=== PATIENT | female | born 1975 | race American Indian/Alaskan Native ===

== ENCOUNTER 2017-03-24 15:24 | Emergency (ER) | payer SELFPAY ==
[2017-03-24 15:36] VITALS: BP 124/83
[2017-03-24] MEDS ORDERED: BOOSTRIX IM ONE (16:10)
--- NOTE | 2017-03-24 16:12 | Emergency Department Report ---
ED General Adult HPI - General Chief complaint: Upper Respiratory Infection Stated complaint: CAN NOT SWALLOW, NAIL IN FOOT Time Seen by Provider: 03/24/17 15:56 Source: patient Mode of arrival: Ambulatory Limitations: No Limitations - History of Present Illness Initial comments: pt is a 41 y/o aaf who presents for right foot pain s/p stepping on nail barefoot 2 days ago symptoms include pain and aching, pt remain ambulatory however denies fever chills or discharge from foot, pt endorses secondary complaint of sore throat with dysphagia x 3 days , symptoms of 5/10 burning aching with swallowing pt denies sick contacts last po intake 3 hrs ago pt tolerated without n/v , symptoms are somewhat relieved by hot liquids symptoms are exacerbated by swallowing pt denies n/v no sob no wheezing, no fever or chills. Onset/Timin -: days(s) Location: lower extremity (right plantar foot ) Radiation: non-radiation Severity scale (0 -10): 5 Quality: burning, aching Consistency: intermittent Worsens with: none Associated Symptoms: denies: confusion, chest pain, cough, diaphoresis, fever/ chills, headaches, loss of appetite, malaise, nausea/vomiting, seizure, shortness of breath, syncope, weakness Treatments Prior to Arrival: none - Related Data Previous Rx's Medication Instructions Recorded Last Taken Type Clindamycin [Clindamycin CAP] 300 mg PO Q8H #30 cap 06/15/16 Unknown Rx Ibuprofen [Motrin] 800 mg PO Q8HR PRN #20 tablet 06/15/16 Unknown Rx Benzocaine/Menth/Cetylpyrd 8 each MM QID PRN #3 packet 03/24/17 Unknown Rx [Cepacol X Strength] Cephalexin [Keflex] 500 mg PO TID #21 capsule 03/24/17 Unknown Rx Ibuprofen [Motrin 800 MG tab] 800 mg PO Q8HR PRN #30 tablet 03/24/17 Unknown Rx Allergies Allergy/AdvReac Type Severity Reaction Status Date / Time No Known Allergies Allergy Unverified 06/15/16 14:05 ED Review of Systems ROS: Stated complaint: CAN NOT SWALLOW, NAIL IN FOOT Other details as noted in HPI Constitutional: denies: chills, fever Eyes: denies: eye pain, eye discharge, vision change ENT: throat pain, congestion Respiratory: no symptoms reported. denies: orthopnea, shortness of breath, wheezing Cardiovascular: denies: chest pain, palpitations Endocrine: no symptoms reported Gastrointestinal: denies: abdominal pain, nausea, diarrhea Genitourinary: denies: urgency, dysuria, discharge Musculoskeletal: other (foot pain ) Skin: denies: rash, lesions Neurological: denies: headache, weakness, paresthesias, abnormal gait Psychiatric: denies: anxiety, depression Hematological/Lymphatic: denies: easy bleeding, easy bruising ED Past Medical Hx - Past Medical History Previous Medical History?: Yes Additional medical history: right finger injury. abcess to throat. anemia - Surgical History Past Surgical History?: Yes Hx Cholecystectomy: Yes Additional Surgical History: tubaligation, gallbladder. heart surgery for fluid around heart. trach - Social History Smoking Status: Current Every Day Smoker Substance Use Type: Alcohol - Medications Home Medications: Home Medications Medication Instructions Recorded Confirmed Last Taken Type Clindamycin [Clindamycin CAP] 300 mg PO Q8H #30 cap 06/15/16 Unknown Rx Ibuprofen [Motrin] 800 mg PO Q8HR PRN #20 tablet 06/15/16 Unknown Rx Benzocaine/Menth/Cetylpyrd 8 each MM QID PRN #3 packet 03/24/17 Unknown Rx [Cepacol X Strength] Cephalexin [Keflex] 500 mg PO TID #21 capsule 03/24/17 Unknown Rx Ibuprofen [Motrin 800 MG tab] 800 mg PO Q8HR PRN #30 tablet 03/24/17 Unknown Rx ED Physical Exam - General Limitations: No Limitations General appearance: alert, in no apparent distress - Head Head exam: Present: atraumatic, normocephalic - Eye Eye exam: Present: normal appearance - ENT ENT exam: Present: mucous membranes moist, TM's normal bilaterally, normal external ear exam - Expanded ENT Exam Expanded Mouth exam: Present: normal external inspection, tongue normal. Absent: drooling, trismus, muffled voice, tongue elevation Teeth exam: Present: dental caries Throat exam: Positive: tonsillar erythema. Negative: tonsillomegaly, tonsillar exudate, R peritonsillar mass, L peritonsillar mass - Neck Neck exam: Present: normal inspection, full ROM. Absent: lymphadenopathy, thyromegaly - Respiratory Respiratory exam: Present: normal lung sounds bilaterally. Absent: respiratory distress - Cardiovascular Cardiovascular Exam: Present: regular rate, normal rhythm. Absent: systolic murmur, diastolic murmur, rubs, gallop - GI/Abdominal GI/Abdominal exam: Present: soft, normal bowel sounds - Rectal Rectal exam: Present: deferred - Extremities Exam Extremities exam: Present: normal inspection - Back Exam Back exam: Present: normal inspection, full ROM - Neurological Exam Neurological exam: Present: alert, oriented X3, CN II-XII intact, normal gait, reflexes normal - Psychiatric Psychiatric exam: Present: normal affect, normal mood - Skin Skin exam: Present: warm, dry, intact, normal color. Absent: rash ED Course Vital Signs 03/24/17 15:29 Temperature 98.5 F Pulse Rate 92 H Respiratory 18 Rate Blood Pressure 124/83 O2 Sat by Pulse 96 Oximetry ED Medical Decision Making - Lab Data rapid strep negative - Radiology Data Radiology results: report reviewed chest normal chest xray, foot normal foot xray - Medical Decision Making pt is a 41 y/o aaf who presents for right foot pain s/p stepping on nail barefoot 2 days ago symptoms include pain and aching, pt remain ambulatory however denies fever chills or discharge from foot, pt endorses secondary complaint of sore throat with dysphagia x 3 days , symptoms of 5/10 burning aching with swallowing pt denies sick contacts last po intake 3 hrs ago pt tolerated without n/v , symptoms are somewhat relieved by hot liquids symptoms are exacerbated by swallowing pt denies n/v no sob no wheezing, no fever or chills. exam: ENT tms amanda, nose: mild erythema clear post nasal drip, pharynx : moderate erythema no exudate no lesions , uvula mildline mild tonsilar swelling no exudate no abscess no stridor , lungs clear bilat no wheezing CV: s1 and s2 no MRG, rapid strep negative, right: foot , rom intact puncture site no erythema no ecchymosis no swelling no deformity , ppepb+2 pt is ambulatory with minimal limp, TDap given in ed today, plan: nsaids prn pain , tx of uri, pharyngitis, pt will follow up with primary care upon appointment next week. pt verbalized agreement and understanding of same. Critical care attestation.: If time is entered above; I have spent that time in minutes in the direct care of this critically ill patient, excluding procedure time. ED Disposition Clinical Impression: URI (upper respiratory infection) Qualifiers: URI type: acute nasopharyngitis (common cold) Qualified Code(s): J00 - Acute nasopharyngitis [common cold] Pharyngitis Qualifiers: Pharyngitis/tonsillitis etiology: unspecified etiology Qualified Code(s): J02.9 - Acute pharyngitis, unspecified Puncture wound of foot Qualifiers: Encounter type: initial encounter Laterality: right Qualified Code(s): S91.331A - Puncture wound without foreign body, right foot, initial encounter Disposition: TO HOME OR SELFCARE Is pt being admited?: No Does the pt Need Aspirin: No Condition: Good Instructions: Puncture Wound (ED), Upper Respiratory Infection (ED), Pharyngitis (ED) Prescriptions: Benzocaine/Menth/Cetylpyrd [Cepacol X Strength] 8 each MM QID PRN #3 packet PRN Reason: Pain Cephalexin [Keflex] 500 mg PO TID #21 capsule Ibuprofen [Motrin 800 MG tab] 800 mg PO Q8HR PRN #30 tablet PRN Reason: Pain Referrals: PRIMARY CARE, [Primary Care Provider] - 3-5 Days Forms: Work/School Release Form(ED) Time of Disposition: 18:09
--- NOTE | 2017-03-24 16:40 | XRay Report ---
CHEST ONE VIEW INDICATION: Productive cough. COMPARISON: 06/18/2016. FINDINGS: Portable, single, frontal chest radiograph now demonstrates normal cardiomediastinal silhouette and clear lungs. Unremarkable bones. CONCLUSION: No acute chest process with interval improvement. Thank you for the opportunity to participate in this patient's care.
--- NOTE | 2017-03-24 16:41 | XRay Report ---
LEFT FOOT RADIOGRAPHS INDICATION: Stepped on nail. Wound. COMPARISON: None similar. FINDINGS: AP, lateral and oblique views of the left foot demonstrate normal bones, joints and soft tissues. No radiopaque foreign body. CONCLUSION: No acute radiographic abnormality. Thank you for the opportunity to participate in this patient's care.
== END 2017-03-24 18:18 | disposition home or self-care (01) ==
LOC: ED 15:24
DX: J06.9 Acute upper respiratory infection, unspecified (principal); J02.9 Acute pharyngitis, unspecified; S91.331A Puncture wound without foreign body, right foot, initial encounter; F17.210 Nicotine dependence, cigarettes, uncomplicated; W22.8XXA Striking against or struck by other objects, initial encounter; Y93.89 Activity, other specified; Y92.89 Other specified places as the place of occurrence of the external cause; Y99.8 Other external cause status
CPT/HCPCS: 71010; 87116; 87430; 90471; 90715; 99283

== ENCOUNTER 2017-12-11 20:54 | Emergency (ER) | payer SELFPAY ==
[2017-12-11 21:42] LABS: HCG Qualitative,Urine Negative (Negative)
[2017-12-11 21:57] LABS: Bacteria,Urine 2+ /HPF (Negative); Bilirubin,Urine NEG (Negative); Blood,Urine SM (Negative); Color,Urine Straw (Yellow); Mucus,Urine FEW /HPF; Protein,Urine <15 mg/dL mg/dL (Negative); Urobilinogen,Urine < 2.0 mg/dL (<2.0)
[2017-12-12] MEDS ORDERED: TYLENOL PO ONE (07:13)
[2017-12-12] MEDS ORDERED: MOTRIN PO ONE (07:13)
[2017-12-12] MEDS ORDERED: NACL 0.9% 1000 ML 1,000 ML IV ONE (07:13)
[2017-12-12 07:45] LABS: Basophils % (Auto) 0.5 % (0.0-1.8); Eosinophils % (Auto) 0.1 % (0.0-4.3); Hematocrit 37.8 % (30.3-42.9); Hemoglobin 13.2 gm/dl (10.1-14.3); Lymphocytes # (Auto) 0.6 K/mm3 (1.2-5.4); Mean Corpuscular HGB Conc 35 % (30-34); Mean Corpuscular Hemoglobin 29 pg (28-32); Mean Corpuscular Volume 83 fl (79-97); Monocytes # (Auto) 0.4 K/mm3 (0.0-0.8); Platelet Count 147 K/mm3 (140-440); Red Blood Count 4.59 M/mm3 (3.65-5.03); Red Cell Distribution Width 12.7 % (13.2-15.2)
[2017-12-12 07:46] LABS: Alanine Aminotransferase 21 units/L (7-56); Albumin 3.7 g/dL (3.9-5); BUN/Creatinine Ratio 11; Blood Urea Nitrogen 9 mg/dL (7-17); Calcium 8.4 mg/dL (8.4-10.2); Hemolysis Index 6; Lipase 22 units/L (13-60)
--- NOTE | 2017-12-12 08:10 | Emergency Department Report ---
ED Abdominal Pain HPI - General Chief Complaint: Abdominal Pain Stated Complaint: FLU LIKE SX Time Seen by Provider: 12/12/17 07:02 Source: patient Mode of arrival: Ambulatory Limitations: No Limitations - History of Present Illness Initial Comments: 4 days of bilateral lower abdominal pain. Constant. Not affected by food. Associated with urinary symptoms. Patient has had a kidney stone is concerned that. Over the past 2 days, patient has had a fever to 101. Nauseous, but no vomiting. Has had a cholecystectomy and tubal ligation. No vaginal complaints at this time. Severity scale (0 -10): 0 - Related Data Previous Rx's Medication Instructions Recorded Last Taken Type Clindamycin [Clindamycin CAP] 300 mg PO Q8H #30 cap 06/15/16 Unknown Rx Ibuprofen [Motrin] 800 mg PO Q8HR PRN #20 tablet 06/15/16 Unknown Rx Benzocaine/Menth/Cetylpyrd 8 each MM QID PRN #3 packet 03/24/17 Unknown Rx [Cepacol X Strength] Cephalexin [Keflex] 500 mg PO TID #21 capsule 03/24/17 Unknown Rx Ibuprofen [Motrin 800 MG tab] 800 mg PO Q8HR PRN #30 tablet 03/24/17 Unknown Rx Cephalexin [Keflex] 500 mg PO Q8HR #30 cap 12/12/17 Unknown Rx traMADol [Ultram 50 MG tab] 50 mg PO Q6HR PRN #10 tablet 12/12/17 Unknown Rx Allergies Allergy/AdvReac Type Severity Reaction Status Date / Time No Known Allergies Allergy Verified 12/11/17 21:07 ED Review of Systems ROS: Stated complaint: FLU LIKE SX Other details as noted in HPI Comment: All other systems reviewed and negative Constitutional: chills, malaise Gastrointestinal: abdominal pain, nausea Genitourinary: dysuria Neurological: headache ED Past Medical Hx - Past Medical History Previous Medical History?: Yes Additional medical history: right finger injury. abcess to throat. anemia. fld around heart - Surgical History Past Surgical History?: Yes Hx Cholecystectomy: Yes Additional Surgical History: tubaligation, gallbladder. heart surgery for fluid around heart. trach - Social History Smoking Status: Current Every Day Smoker Substance Use Type: Alcohol - Medications Home Medications: Home Medications Medication Instructions Recorded Confirmed Last Taken Type Clindamycin [Clindamycin CAP] 300 mg PO Q8H #30 cap 06/15/16 Unknown Rx Ibuprofen [Motrin] 800 mg PO Q8HR PRN #20 tablet 06/15/16 Unknown Rx Benzocaine/Menth/Cetylpyrd 8 each MM QID PRN #3 packet 03/24/17 Unknown Rx [Cepacol X Strength] Cephalexin [Keflex] 500 mg PO TID #21 capsule 03/24/17 Unknown Rx Ibuprofen [Motrin 800 MG tab] 800 mg PO Q8HR PRN #30 tablet 03/24/17 Unknown Rx Cephalexin [Keflex] 500 mg PO Q8HR #30 cap 12/12/17 Unknown Rx traMADol [Ultram 50 MG tab] 50 mg PO Q6HR PRN #10 tablet 12/12/17 Unknown Rx ED Physical Exam - General Limitations: No Limitations General appearance: alert, in no apparent distress - Head Head exam: Present: atraumatic, normocephalic - Eye Eye exam: Present: normal appearance - ENT ENT exam: Present: mucous membranes moist - Neck Neck exam: Present: normal inspection - Respiratory Respiratory exam: Present: normal lung sounds bilaterally. Absent: respiratory distress - Cardiovascular Cardiovascular Exam: Present: regular rate, normal rhythm. Absent: systolic murmur, diastolic murmur, rubs, gallop - GI/Abdominal GI/Abdominal exam: Present: soft, tenderness (RLQ, LLQ, suprapubic, no cva tenderness), normal bowel sounds - Extremities Exam Extremities exam: Present: normal inspection - Back Exam Back exam: Present: normal inspection - Neurological Exam Neurological exam: Present: alert, oriented X3 - Psychiatric Psychiatric exam: Present: normal affect, normal mood - Skin Skin exam: Present: warm, dry, intact, normal color. Absent: rash ED Course Vital Signs 12/11/17 12/12/17 12/12/17 21:03 06:56 07:14 Temperature 99.5 F 101.0 F H Pulse Rate 79 71 Respiratory 18 17 Rate Blood Pressure 122/78 Blood Pressure 122/74 [Left] O2 Sat by Pulse 99 99 Oximetry ED Medical Decision Making - Lab Data Result diagrams: 12/12/17 07:17 12/12/17 07:15 - Radiology Data Radiology results: report reviewed - Medical Decision Making 42-year-old female with no significant past medical history of presents with abdominal pain and fevers. Patient had a temperature of 101. Respiratory vitals are unremarkable. She is well-appearing. Lab work significant for hematuria on urinalysis. CT scan shows evidence of uterine fibroids, but no other acute abdominal pathology. I believe patient likely to be suffering pain from her fibroids and a UTI, which is also giving her fever. Patient will be treated for 10 days to cover for possible pyelonephritis. She is not concerned about STDs and has no vaginal complaints. I deferred the exam at this time. Patient will follow-up with [facility] for management of her fibroids. - Differential Diagnosis sepsis, UTI, PID, pyelo, torsion, toa Critical care attestation.: If time is entered above; I have spent that time in minutes in the direct care of this critically ill patient, excluding procedure time. ED Disposition Clinical Impression: UTI (urinary tract infection), Uterine fibroid Clinical Impression: (Ruled Out): Pyelonephritis Disposition: TO HOME OR SELFCARE Is pt being admited?: No Condition: Stable Instructions: Abdominal Pain (ED), Uterine Fibroids (ED), Urinary Tract Infection in Women (ED) Additional Instructions: Please follow up with your [facility] for further management of your fibroids. Take 1000 mg tylenol and/or 800 mg motrin every 6 hours as needed to control your fever. Prescriptions: Cephalexin [Keflex] 500 mg PO Q8HR #30 cap traMADol [Ultram 50 MG tab] 50 mg PO Q6HR PRN #10 tablet PRN Reason: Pain Referrals: PRIMARY CARE, [Primary Care Provider] - 3-5 Days VICKY LESTER MD [Staff Physician] - 3-5 Days
--- NOTE | 2017-12-12 08:34 | Cat Scan Report ---
CT ABDOMEN PELVIS WITH CONTRAST: HISTORY: abdominal pain. COMPARISON: 06/18/[address] abdomen and pelvis. TECHNIQUE: Helical CT in 1.25mm intervals following IV contrast. Sagittal and coronal reconstructions. FINDINGS: Lung bases: Small bilateral pleural effusions and bibasilar atelectasis/infiltrates have resolved since the previous exam. Normal heart size. Liver: Normal. Biliary system: Cholecystectomy. No biliary dilatation. Pancreas: Normal. Spleen: Normal. Kidneys/ureters/bladder: Normal. Adrenal glands: Normal. Aorta: Normal. Intestines: Within normal limits given no oral contrast was administered. Appendix: I believe I see the appendix in the right lower quadrant on image 239, series 3. No evidence for appendicitis. Pelvic viscera: The uterus is mildly enlarged and lobular. At least 3 uterine fibroids are identified. The largest fibroid measures up to 6 cm in the right side of the uterine fundus and appears to have a submucosal component. A subserosal fibroid in the lower anterior wall measures 4.1 cm and demonstrates cystic change. An exophytic 3 cm fibroid projects from the left lateral wall. The right adnexa is unremarkable. A 2.2 cm peripheral enhancing cyst is noted in the left ovary. Ascites: Small pelvic ascites. Adenopathy: None. Musculoskeletal: Normal. IMPRESSION: Moderate uterine fibroid disease. 2.2 cm left ovarian cyst there is Small pelvic ascites. No acute inflammatory process is appreciated.
[2017-12-12] MEDS ORDERED: KEFLEX PO ONE (09:08)
[2017-12-12 09:13] VITALS: BP 122/69
== END 2017-12-12 11:00 | disposition home or self-care (01) ==
LOC: ED 20:54
DX: N39.0 Urinary tract infection, site not specified (principal); D25.9 Leiomyoma of uterus, unspecified; F17.200 Nicotine dependence, unspecified, uncomplicated; Z90.49 Acquired absence of other specified parts of digestive tract; Z98.51 Tubal ligation status
CPT/HCPCS: 36415; 74177; 80053; 81001; 81025; 83690; 85025; 99284; J7030; Q9967

== ENCOUNTER 2019-03-13 14:51 | Emergency (ER) | payer SELFPAY ==
[2019-03-13] MEDS ORDERED: ATIVAN PO PRN ×2 (16:42)
[2019-03-13] MEDS ORDERED: ATIVAN IV PRN (16:42)
[2019-03-13] MEDS ORDERED: LIBRIUM PO PRN ×2 (16:42)
[2019-03-13 17:01] LABS: Bilirubin,Urine NEG (Negative); Blood,Urine NEG (Negative); Color,Urine Yellow (Yellow); Mucus,Urine 1+ /HPF; Urobilinogen,Urine < 2.0 mg/dL (<2.0)
[2019-03-13] MEDS ORDERED: ZOFRAN IV ONE (17:23)
[2019-03-13] MEDS ORDERED: NACL 0.9% 1000 ML 1,000 ML IV ONE (17:23)
--- NOTE | 2019-03-13 17:36 | Emergency Department Report ---
ED General Adult HPI - General Chief complaint: Psych Stated complaint: SUICIDAL THOUGHRS Time Seen by Provider: 03/13/19 16:35 Source: EMS Mode of arrival: Ambulatory Limitations: No Limitations - History of Present Illness Initial comments: Presented to the emergency department with a chief complaint of depression and being suicidal. She is also concerned about her alcohol intake and wants help. Patient states she drinks 6 20 ounce cans of beer daily but today she has only drunk 1 can of beer -: Gradual Severity scale (0 -10): 0 Consistency: constant Improves with: none Worsens with: none Associated Symptoms: denies other symptoms Treatments Prior to Arrival: none - Related Data Home Medications Medication Instructions Recorded Confirmed Last Taken No Known Home Medications [No 03/13/19 03/13/19 Unknown Reported Home Medications] Allergies Allergy/AdvReac Type Severity Reaction Status Date / Time No Known Allergies Allergy Verified 12/11/17 21:07 ED Review of Systems ROS: Stated complaint: SUICIDAL THOUGHRS Other details as noted in HPI Comment: All other systems reviewed and negative Constitutional: denies: chills, fever Eyes: denies: eye pain, eye discharge, vision change ENT: denies: ear pain, throat pain Respiratory: denies: cough, shortness of breath, wheezing Cardiovascular: denies: chest pain, palpitations Endocrine: no symptoms reported Gastrointestinal: denies: abdominal pain, nausea, diarrhea Genitourinary: denies: urgency, dysuria, discharge Musculoskeletal: denies: back pain, joint swelling, arthralgia Skin: denies: rash, lesions Neurological: denies: headache, weakness, paresthesias Psychiatric: suicidal thoughts. denies: anxiety, depression, auditory hallucinations, visual hallucinations, homicidal thoughts Hematological/Lymphatic: denies: easy bleeding, easy bruising ED Past Medical Hx - Past Medical History Previous Medical History?: Yes Hx Psychiatric Treatment: Yes (Depression) Additional medical history: right finger injury. abcess to throat. anemia. fld around heart - Surgical History Hx Cholecystectomy: Yes Additional Surgical History: tubaligation, gallbladder. heart surgery for fluid around heart. trach - Social History Smoking Status: Current Every Day Smoker Substance Use Type: Alcohol - Medications Home Medications: Home Medications Medication Instructions Recorded Confirmed Last Taken Type No Known Home Medications [No 03/13/19 03/13/19 Unknown History Reported Home Medications] ED Physical Exam - General Limitations: No Limitations General appearance: alert, in no apparent distress, appears intoxicated - Head Head exam: Present: atraumatic, normocephalic - Eye Eye exam: Present: normal appearance, PERRL, EOMI - ENT ENT exam: Present: mucous membranes moist - Neck Neck exam: Present: normal inspection - Respiratory Respiratory exam: Present: normal lung sounds bilaterally. Absent: respiratory distress - Cardiovascular Cardiovascular Exam: Present: regular rate, normal rhythm. Absent: systolic murmur, diastolic murmur, rubs, gallop - GI/Abdominal GI/Abdominal exam: Present: soft, normal bowel sounds. Absent: distended, tenderness - Extremities Exam Extremities exam: Present: normal inspection - Back Exam Back exam: Present: normal inspection - Neurological Exam Neurological exam: Present: alert, oriented X3, CN II-XII intact, other (Tremors on exam). Absent: motor sensory deficit - Psychiatric Psychiatric exam: Present: normal affect, normal mood, suicidal ideation. Absent: homicidal ideation - Skin Skin exam: Present: warm, dry, intact, normal color. Absent: rash ED Course Vital Signs 03/13/19 03/13/19 15:09 16:30 Temperature 98.9 F 98.9 F Pulse Rate 95 H 95 H Respiratory 18 18 Rate Blood Pressure 137/83 Blood Pressure 137/83 137/83 [Left] O2 Sat by Pulse 98 98 Oximetry ED Medical Decision Making - Lab Data Result diagrams: 03/13/19 17:50 03/13/19 17:50 Lab Results 03/13/19 03/13/19 03/13/19 Range/Units 17:50 17:50 17:50 WBC 6.5 (4.5-11.0) K/mm3 RBC 4.47 (3.65-5.03) M/mm3 Hgb 13.3 (10.1-14.3) gm/dl Hct 38.5 (30.3-42.9) % MCV 86 (79-97) fl MCH 30 (28-32) pg MCHC 35 H (30-34) % RDW 13.1 L (13.2-15.2) % Plt Count 242 (140-440) K/mm3 Lymph % (Auto) 13.1 L (13.4-35.0) % [place] % (Auto) 7.8 H (0.0-7.3) % Eos % (Auto) 0.2 (0.0-4.3) % Baso % (Auto) 0.6 (0.0-1.8) % Lymph # 0.9 L (1.2-5.4) K/mm3 [place] # 0.5 (0.0-0.8) K/mm3 Eos # 0.0 (0.0-0.4) K/mm3 Baso # 0.0 (0.0-0.1) K/mm3 Seg Neutrophils % 78.3 H (40.0-70.0) % Seg Neutrophils # 5.1 (1.8-7.7) K/mm3 Sodium 139 (137-145) mmol/L Potassium 3.9 (3.6-5.0) mmol/L Chloride 97.7 L (98-107) mmol/L Carbon Dioxide 31 H (22-30) mmol/L Anion Gap 14 mmol/L BUN 10 (7-17) mg/dL Creatinine 0.7 (0.7-1.2) mg/dL Estimated GFR > 60 ml/min BUN/Creatinine Ratio 14 % Glucose 86 (65-100) mg/dL Calcium 9.0 (8.4-10.2) mg/dL Total Bilirubin 1.10 (0.1-1.2) mg/dL AST 34 (5-40) units/L ALT 17 (7-56) units/L Alkaline Phosphatase 77 (35-129) units/L Total Protein 7.4 (6.3-8.2) g/dL Albumin 4.4 (3.9-5) g/dL Albumin/Globulin Ratio 1.5 % TSH (0.270-4.200) mlU/mL Urine Color (Yellow) Urine Turbidity (Clear) Urine pH (5.0-7.0) Ur Specific [place] (1.003-1.030) Urine Protein (Negative) mg/dL Urine Glucose (UA) (Negative) mg/dL Urine Ketones (Negative) mg/dL Urine Blood (Negative) Urine Nitrite (Negative) Urine Bilirubin (Negative) Urine Urobilinogen (<2.0) mg/dL Ur Leukocyte Esterase (Negative) Urine WBC (Auto) (0.0-6.0) /HPF Urine RBC (Auto) (0.0-6.0) /HPF U Epithel Cells (Auto) (0-13.0) /HPF Urine Mucus /HPF Salicylates < 0.3 L (2.8-20.0) mg/dL Urine Opiates Screen Urine Methadone Screen Acetaminophen (10.0-30.0) ug/mL Ur Barbiturates Screen Ur Phencyclidine Scrn Ur Amphetamines Screen U Benzodiazepines Scrn Urine Cocaine Screen U Marijuana (THC) Screen Drugs of Abuse Note Plasma/Serum Alcohol (0-0.07) % 03/13/19 03/13/19 03/13/19 Range/Units 17:50 17:55 17:56 WBC (4.5-11.0) K/mm3 RBC (3.65-5.03) M/mm3 Hgb (10.1-14.3) gm/dl Hct (30.3-42.9) % MCV (79-97) fl MCH (28-32) pg MCHC (30-34) % RDW (13.2-15.2) % Plt Count (140-440) K/mm3 Lymph % (Auto) (13.4-35.0) % [place] % (Auto) (0.0-7.3) % Eos % (Auto) (0.0-4.3) % Baso % (Auto) (0.0-1.8) % Lymph # (1.2-5.4) K/mm3 [place] # (0.0-0.8) K/mm3 Eos # (0.0-0.4) K/mm3 Baso # (0.0-0.1) K/mm3 Seg Neutrophils % (40.0-70.0) % Seg Neutrophils # (1.8-7.7) K/mm3 Sodium (137-145) mmol/L Potassium (3.6-5.0) mmol/L Chloride (98-107) mmol/L Carbon Dioxide (22-30) mmol/L Anion Gap mmol/L BUN (7-17) mg/dL Creatinine (0.7-1.2) mg/dL Estimated GFR ml/min BUN/Creatinine Ratio % Glucose (65-100) mg/dL Calcium (8.4-10.2) mg/dL Total Bilirubin (0.1-1.2) mg/dL AST (5-40) units/L ALT (7-56) units/L Alkaline Phosphatase (35-129) units/L Total Protein (6.3-8.2) g/dL Albumin (3.9-5) g/dL Albumin/Globulin Ratio % TSH 2.480 (0.270-4.200) mlU/mL Urine Color (Yellow) Urine Turbidity (Clear) Urine pH (5.0-7.0) Ur Specific [place] (1.003-1.030) Urine Protein (Negative) mg/dL Urine Glucose (UA) (Negative) mg/dL Urine Ketones (Negative) mg/dL Urine Blood (Negative) Urine Nitrite (Negative) Urine Bilirubin (Negative) Urine Urobilinogen (<2.0) mg/dL Ur Leukocyte Esterase (Negative) Urine WBC (Auto) (0.0-6.0) /HPF Urine RBC (Auto) (0.0-6.0) /HPF U Epithel Cells (Auto) (0-13.0) /HPF Urine Mucus /HPF Salicylates (2.8-20.0) mg/dL Urine Opiates Screen Urine Methadone Screen Acetaminophen < 5.0 L (10.0-30.0) ug/mL Ur Barbiturates Screen Ur Phencyclidine Scrn Ur Amphetamines Screen U Benzodiazepines Scrn Urine Cocaine Screen U Marijuana (THC) Screen Drugs of Abuse Note Plasma/Serum Alcohol < 0.01 (0-0.07) % 03/13/19 03/13/19 Range/Units 18:40 Unknown WBC (4.5-11.0) K/mm3 RBC (3.65-5.03) M/mm3 Hgb (10.1-14.3) gm/dl Hct (30.3-42.9) % MCV (79-97) fl MCH (28-32) pg MCHC (30-34) % RDW (13.2-15.2) % Plt Count (140-440) K/mm3 Lymph % (Auto) (13.4-35.0) % [place] % (Auto) (0.0-7.3) % Eos % (Auto) (0.0-4.3) % Baso % (Auto) (0.0-1.8) % Lymph # (1.2-5.4) K/mm3 [place] # (0.0-0.8) K/mm3 Eos # (0.0-0.4) K/mm3 Baso # (0.0-0.1) K/mm3 Seg Neutrophils % (40.0-70.0) % Seg Neutrophils # (1.8-7.7) K/mm3 Sodium (137-145) mmol/L Potassium (3.6-5.0) mmol/L Chloride (98-107) mmol/L Carbon Dioxide (22-30) mmol/L Anion Gap mmol/L BUN (7-17) mg/dL Creatinine (0.7-1.2) mg/dL Estimated GFR ml/min BUN/Creatinine Ratio % Glucose (65-100) mg/dL Calcium (8.4-10.2) mg/dL Total Bilirubin (0.1-1.2) mg/dL AST (5-40) units/L ALT (7-56) units/L Alkaline Phosphatase (35-129) units/L Total Protein (6.3-8.2) g/dL Albumin (3.9-5) g/dL Albumin/Globulin Ratio % TSH (0.270-4.200) mlU/mL Urine Color Yellow (Yellow) Urine Turbidity Clear (Clear) Urine pH 6.0 (5.0-7.0) Ur Specific [place] 1.020 (1.003-1.030) Urine Protein 30 mg/dl (Negative) mg/dL Urine Glucose (UA) Neg (Negative) mg/dL Urine Ketones 20 (Negative) mg/dL Urine Blood Neg (Negative) Urine Nitrite Neg (Negative) Urine Bilirubin Neg (Negative) Urine Urobilinogen < 2.0 (<2.0) mg/dL Ur Leukocyte Esterase Neg (Negative) Urine WBC (Auto) 2.0 (0.0-6.0) /HPF Urine RBC (Auto) 1.0 (0.0-6.0) /HPF U Epithel Cells (Auto) 2.0 (0-13.0) /HPF Urine Mucus 1+ /HPF Salicylates (2.8-20.0) mg/dL Urine Opiates Screen Presumptive negative Urine Methadone Screen Presumptive negative Acetaminophen (10.0-30.0) ug/mL Ur Barbiturates Screen Presumptive negative Ur Phencyclidine Scrn Presumptive negative Ur Amphetamines Screen Presumptive negative U Benzodiazepines Scrn Presumptive negative Urine Cocaine Screen Presumptive negative U Marijuana (THC) Screen Presumptive negative Drugs of Abuse Note Disclamer Plasma/Serum Alcohol (0-0.07) % - Medical Decision Making 2012 applied Placed on [facility] Medically cleared Critical care attestation.: If time is entered above; I have spent that time in minutes in the direct care of this critically ill patient, excluding procedure time. ED Disposition Clinical Impression: Suicidal ideation, Alcohol abuse Disposition: [id number]/TX-65 PSY HOSP/PSY UNIT Is pt being admited?: No Does the pt Need Aspirin: No Condition: Stable Referrals: PRIMARY CARE, [Primary Care Provider] - 3-5 Days
[2019-03-13 18:10] LABS: Basophils % (Auto) 0.6 % (0.0-1.8); Eosinophils % (Auto) 0.2 % (0.0-4.3); Hematocrit 38.5 % (30.3-42.9); Hemoglobin 13.3 gm/dl (10.1-14.3); Lymphocytes # (Auto) 0.9 K/mm3 (1.2-5.4); Lymphocytes % (Auto) 13.1 % (13.4-35.0); Mean Corpuscular HGB Conc 35 % (30-34); Mean Corpuscular Volume 86 fl (79-97); Monocytes # (Auto) 0.5 K/mm3 (0.0-0.8); Monocytes % (Auto) 7.8 % (0.0-7.3); Platelet Count 242 K/mm3 (140-440); Red Blood Count 4.47 M/mm3 (3.65-5.03); Red Cell Distribution Width 13.1 % (13.2-15.2)
[2019-03-13 18:54] LABS: Alanine Aminotransferase 17 units/L (7-56); Albumin 4.4 g/dL (3.9-5); BUN/Creatinine Ratio 14; Blood Urea Nitrogen 10 mg/dL (7-17); Hemolysis Index 16
[2019-03-13 22:40] LABS: Amphetamine Screen,Urine PRESUMPTIVE NEGATIVE; Benzodiazepines Screen,Urine PRESUMPTIVE NEGATIVE; Cannabinoid Screen,Urine PRESUMPTIVE NEGATIVE; Cocaine Screen,Urine PRESUMPTIVE NEGATIVE; Methadone Screen,Urine PRESUMPTIVE NEGATIVE; Opiate Screen,Urine PRESUMPTIVE NEGATIVE
--- NOTE | 2019-03-14 10:52 | Consultation ---
History of Present Illness - Reason for Consult Consult date: 03/14/19 Reason for consult: Initial Psychiatric Evaluation - Chief Complaint Chief complaint: "suicidal thoughts" - History of Present Psychiatric Illness Patient is a 43 year old AAF that presents to the emergency room with depression and suicidal ideations. She has a PPHx MDD. Today the patient is calm and cooperative during the assessment. Throughout the assessment patient is tearful. She reports that her depressive symptoms are triggered by her instability and lack of accomplishments. Also, patient verbalizes that she has been drinking excessively due to depressed mood. Patient states she drinks 6 20 ounce cans of beer daily. She endorses depressed mood, lack of motivation, decrease energy, decrease appetite, anxious mood, and decrease sleep. Symptoms have been ongoing for 6 years but within the last 1-2 years symptoms have exacerbated. She reports SI's without a plan. She denies HI', A/VH's, and delusions. Patient reports that she hasn't taken depression medication since 2008. Current Psychiatric Medications: Patient denies. Past Psychiatric History: MDD (2007); 1 previous psychiatric hospitalization ( [facility] 2007); no outpatient psychiatrist; 2 previous suicide attempts ( drinking bleach)- last attempt 09/2018. Past Medication Trials: Prozac- effective, Zoloft- " I don't remember", Wellbutrin- " good but it made me sleep all day." History of Drugs/Alcohol Abuse: Alcohol- 6 20 ounce cans of beer daily, last drink - 03/13/19, first drink- age 19. Denies drug abuse. UDS negative. History of Trauma/Abuse: Patient denies trauma; Patient denies sexual, physical, and mental abuse. Social History: Some college; homeless; 3 children - (23, 22,20); in a relationship; no pending legal issues. Family History of Psychiatric Illness/Substance Abuse: " Everybody drinks." Medications and Allergies Allergies Allergy/AdvReac Type Severity Reaction Status Date / Time No Known Allergies Allergy Verified 12/11/17 21:07 Home Medications Medication Instructions Recorded Confirmed Last Taken Type No Known Home Medications [No 03/13/19 03/13/19 Unknown History Reported Home Medications] Active Meds: Active Medications Chlordiazepoxide HCl (Librium) 50 mg PO Q1HR PRN PRN Reason: CIWA-Ar 8-15 Chlordiazepoxide HCl (Librium) 100 mg PO Q1HR PRN PRN Reason: CIWA-Ar 16-25 Lorazepam (Ativan) 2 mg PO Q1HR PRN PRN Reason: CIWA-Ar 8-15 Last Admin: 03/13/19 17:06 Dose: 2 mg Documented by: Lorazepam (Ativan) 4 mg PO Q1HR PRN PRN Reason: CIWA-Ar 16-25 Lorazepam (Ativan) 4 mg IV Q15MIN PRN PRN Reason: CIWA-Ar >25 Mental Status Exam - Vital signs Last Vital Signs Temp 98.1 F 03/14/19 08:45 Pulse 69 03/14/19 08:45 Resp 16 03/14/19 08:45 BP 126/77 03/14/19 08:45 Pulse Ox 97 03/14/19 08:45 - Exam Narrative exam: Mental Status Exam Appearance: calm Behavior: regular eye contact Speech: regular rate and tone Mood: "sad" Affect: congruent to mood Thought Process: circumstantial Thought Content: denies HI's, AVH's, and delusions; + SI's without a plan Motor Activity: ambulatory Cognition: A/O x 3 Insight: variable Judgment: variable Results Result Diagrams: 03/13/19 17:50 03/13/19 17:50 Abnormal lab results 03/13/19 03/13/19 03/13/19 Range/Units 17:50 17:50 17:50 MCHC 35 H (30-34) % RDW 13.1 L (13.2-15.2) % Lymph % (Auto) 13.1 L (13.4-35.0) % [place] % (Auto) 7.8 H (0.0-7.3) % Lymph # 0.9 L (1.2-5.4) K/mm3 Seg Neutrophils % 78.3 H (40.0-70.0) % Chloride 97.7 L (98-107) mmol/L Carbon Dioxide 31 H (22-30) mmol/L Salicylates < 0.3 L (2.8-20.0) mg/dL Acetaminophen (10.0-30.0) ug/mL 03/13/19 Range/Units 17:56 MCHC (30-34) % RDW (13.2-15.2) % Lymph % (Auto) (13.4-35.0) % [place] % (Auto) (0.0-7.3) % Lymph # (1.2-5.4) K/mm3 Seg Neutrophils % (40.0-70.0) % Chloride (98-107) mmol/L Carbon Dioxide (22-30) mmol/L Salicylates (2.8-20.0) mg/dL Acetaminophen < 5.0 L (10.0-30.0) ug/mL All other labs normal. Assessment and Plan Assessment and plan: Impression: MDD, recurrent, severe, without psychosis. Today the patient is calm and cooperative during the assessment. Also, patient is tearful. She endorse SI's without a plan. Recommendation/Plan: 1. Continue 1013. 2. Start Prozac 20mg po QAM depression/anxiety. Discussed possible suicidality/medication induced virgie with the patient reference Prozac, she verbalized understanding. Also, Vistaril 50mg po BID PRN anxiety. Discussed possible anti-cholinergic side effects. Patient verbalizes full understanding. Disposition: Will refer to inpatient psychiatric services. Will staff with Dr. Ross Barr.
[2019-03-14] MEDS: PROzac PO SCH (14:28)
[2019-03-14] MEDS: VISTARIL PO PRN ×2 (14:29→22:05)
[2019-03-15 09:42] LABS: Bilirubin,Urine NEG (Negative); Blood,Urine SM (Negative); Color,Urine Yellow (Yellow); Mucus,Urine FEW /HPF; Protein,Urine <15 mg/dL mg/dL (Negative); Urobilinogen,Urine < 2.0 mg/dL (<2.0)
[2019-03-15 09:43] LABS: HCG Qualitative,Urine Negative (Negative)
[2019-03-15] MEDS: PROzac PO SCH (10:33)
--- NOTE | 2019-03-15 12:25 | Progress Note ---
Subjective - Reason for Consult Consult date: 03/15/19 Reason for consult: Psychiatry Follow-up - Chief Complaint Chief complaint: "I'm a little better" 43 year old AAF who presented to the ER for SI's. Today the patient was calm and cooperative during the assessment. She stated that she feel A "little better." mentally. She stated that she is in need of employment. Also, she stated that she is homeless. She denies SI/HI's and AVH's. She denies any side effects from her medications. Mental Status Exam - Vital signs Last Vital Signs Temp 98.4 F 03/15/19 09:15 Pulse 68 03/15/19 09:15 Resp 18 03/15/19 09:15 BP 122/69 03/15/19 09:15 Pulse Ox 98 03/15/19 09:15 - Exam Narrative exam: MSE: Appearance: calm, cooperative Behavior: regular eye contact Speech: regular rate and tone Mood: "okay" Affect: congruent to mood Thought Process: circumstantial Thought Content: denies SI/HI's and AVH's Motor Activity: ambulatory Cognition: A/O x 3 Insight: variable to fair Judgment: variable to fair Assessment and Plan Impression: MDD, recurrent. Unspecified Anxiety DO. Today the patient was calm and cooperative during the assessment. DDx: R/O Bipolar DO Recommendation/Plan: Reevaluate the patient's 1013 in 24 hours. Continue Prozac 20 mg PO daily for depression/anxiety and Vistaril 50 mg PO BID PRN for acute anxiety. Discussed possible suicidality/medication induced virgie with the patient reference Prozac, she verbalized understanding. Case Mgmt involvement, the patient may need assistance with placement if discharged from [facility]. Dispo: If the patient's 1013 is rescinded in 24 hours, she can follow up with [facility] for outpatient psy services. Will staff with Dr. Ross Barr.
[2019-03-15] MEDS: VISTARIL PO PRN (22:20)
[2019-03-16] MEDS: PROzac PO SCH (10:37)
--- NOTE | 2019-03-16 13:53 | Progress Note ---
Subjective - Reason for Consult Consult date: 03/16/19 Reason for consult: Psychiatry Follow-up - Chief Complaint Chief complaint: "Things will get better for me" 43 year old AAF who presented to the ER for SI's. Today the patient was calm and cooperative during the assessment. She stated that her plan to stop drinking (etoh). She stated that she plan to attend AA sessions when discharged. She stated that her mental health is very important to her. She denies SI/HI's and AVH's. She denies any side effects from her medications. Mental Status Exam - Vital signs Last Vital Signs Temp 98.2 F 03/16/19 07:00 Pulse 54 L 03/16/19 07:00 Resp 18 03/16/19 07:00 BP 121/54 03/16/19 07:00 Pulse Ox 97 03/16/19 07:00 - Exam Narrative exam: MSE: Appearance: calm, cooperative Behavior: regular eye contact Speech: regular rate and tone Mood: "okay" Affect: congruent to mood Thought Process: linear Thought Content: denies SI/HI's and AVH's Motor Activity: ambulatory Cognition: A/O x 3 Insight: appropriate Judgment: appropriate Assessment and Plan Impression: MDD, recurrent. Unspecified Anxiety DO. Today the patient was calm and cooperative during the assessment. DDx: ,Alcohol Use DO R/O Bipolar DO Recommendation/Plan: Rescind 1013. Continue Prozac 20 mg PO daily for depression/anxiety and Vistaril 50 mg PO BID PRN for acute anxiety. Discussed possible suicidality/medication induced virgie with the patient reference Prozac, she verbalized understanding. Dispo: The patient can follow up [facility] for outpatient psy/rehab services. Staffed with Dr. Ross Barr.
[2019-03-16 14:10] VITALS: BP 114/65
== END 2019-03-16 17:55 | disposition home or self-care (01) ==
LOC: EEVIPCON 14:51 → ED 14:51
DX: F32.9 Major depressive disorder, single episode, unspecified (principal); F41.9 Anxiety disorder, unspecified; R45.851 Suicidal ideations; D64.9 Anemia, unspecified; F17.200 Nicotine dependence, unspecified, uncomplicated; F10.10 Alcohol abuse, uncomplicated; Z90.49 Acquired absence of other specified parts of digestive tract; Z98.51 Tubal ligation status
CPT/HCPCS: 36415; 80053; 80307; 81001; 81025; 84443; 85025; 96374; 99284; J2405; J7030; 80320; G0480; Q0177

== ENCOUNTER 2020-06-22 15:21 | Emergency (ER) | payer SELFPAY ==
[2020-06-22 16:06] VITALS: BP 130/74
[2020-06-22] MEDS ORDERED: chlordiazePOXIDE 25 MG CAP PO PRN ×2 (16:25)
[2020-06-22] MEDS ORDERED: hydrOXYzine PAMOATE 25 MG CAP PO ONE (16:25)
[2020-06-22] MEDS ORDERED: LORazepam 2 MG TAB PO PRN ×2 (16:25)
[2020-06-22] MEDS ORDERED: LORazepam 2 MG/ML VIAL IV PRN (16:25)
--- NOTE | 2020-06-22 16:38 | Emergency Department Report ---
ED General Adult HPI - General Chief complaint: Psych Stated complaint: SI PUI?: No Time Seen by Provider: 06/22/20 16:04 Source: patient, EMS ( EMS documentation not available at time of chart dictation ), RN notes reviewed, old records reviewed Mode of arrival: Ambulatory Limitations: No Limitations - History of Present Illness Initial comments: The patient was evaluated in the emergency department for symptoms described in the history of present illness. He/she was evaluated in the context of the global COVID-19 pandemic, which necessitated consideration that the patient might be at risk for infection with the virus that causes COVID-19. Institutional protocols and algorithms that pertain to the evaluation of patien ts at risk for COVID-19 are in a state of rapid change based on information released by regulatory bodies including the CDC and federal and state organizations. These policies and algorithms were followed during the patient's care in the emergency department. Please note that these policies, procedures and recommendations changed on a rapid basis. The patient is a 44-year-old female. The patient is brought to the hospital by emergency medical services. EMS documentation is not available for my review. Nursing team informs me that the patient reportedly got into an argument with his significant other, and stated that she was suicidal, in order to provoke this individual. Nursing team also informs me that the patient had a conversation with her mother earlier on today, who indicated that the patient could be sent an airplane ticket "to fly anywhere she wants." However, EMS is not available for my personal review, the documentation is not available for my personal review, the patient's mother and/or significant other not physically present. The patient tells me that her chief complaint is "I just want to go home." She denies physical pain. She states that she is not suicidal, homicidal, does not have access to guns or to firearms, states that she is not , has not attempted to overdose on anything, and that she feels "just really anxious about everything going on." The patient has no physical pain or physical complaint at this time. Patient states anxiety is intermittent, and provoked by multiple factors, including unemployment, and the current COVID-19 pandemic. This has been going on for months. -: month(s) Consistency: intermittent Improves with: none Worsens with: none Associated Symptoms: denies other symptoms, other (Only complaint is anxiety) - Related Data Previous Rx's Medication Instructions Recorded Last Taken Type FLUoxetine [PROzac] 20 mg PO QAM #30 capsule 03/16/19 Unknown Rx hydrOXYzine PAMOATE [Vistaril] 50 mg PO BID PRN #60 capsule 03/16/19 Unknown Rx Multivitamin with Folic Acid [[facility] 400 mcg PO QDAY #30 tablet 06/22/20 Unknown Rx One Daily Essential Tablet] Allergies Allergy/AdvReac Type Severity Reaction Status Date / Time No Known Allergies Allergy Verified 12/11/17 21:07 ED Review of Systems ROS: Stated complaint: SI Other details as noted in HPI Comment: All other systems reviewed and negative Psychiatric: anxiety. denies: auditory hallucinations, visual hallucinations, homicidal thoughts, suicidal thoughts ED Past Medical Hx - Past Medical History Previous Medical History?: Yes Hx Psychiatric Treatment: Yes (Depression) Additional medical history: right finger injury. abcess to throat. anemia. fld around heart - Surgical History Hx Cholecystectomy: Yes Additional Surgical History: tubaligation, gallbladder. heart surgery for fluid around heart. trach - Social History Smoking Status: Never Smoker Substance Use Type: None - Medications Home Medications: Home Medications Medication Instructions Recorded Confirmed Last Taken Type FLUoxetine [PROzac] 20 mg PO QAM #30 capsule 03/16/19 Unknown Rx hydrOXYzine PAMOATE [Vistaril] 50 mg PO BID PRN #60 capsule 03/16/19 Unknown Rx Multivitamin with Folic Acid [[facility] 400 mcg PO QDAY #30 tablet 06/22/20 Unknown Rx One Daily Essential Tablet] ED Physical Exam - General Limitations: No Limitations General appearance: alert, anxious - Head Head exam: Present: atraumatic, normocephalic - Eye Eye exam: Present: normal appearance, EOMI, other (Visual acuity intact to finger counting, color perception, reading at a close distance). Absent: nystagmus - ENT ENT exam: Present: normal exam, normal orophraynx, mucous membranes moist, normal external ear exam - Neck Neck exam: Present: normal inspection, full ROM. Absent: tenderness, meningismus - Respiratory Respiratory exam: Present: normal lung sounds bilaterally. Absent: respiratory distress, wheezes, rales, rhonchi, stridor, decreased breath sounds - Cardiovascular Cardiovascular Exam: Present: regular rate, normal rhythm, normal heart sounds. Absent: bradycardia, tachycardia, irregular rhythm, systolic murmur, diastolic murmur, rubs, gallop - GI/Abdominal GI/Abdominal exam: Present: soft. Absent: distended, tenderness, guarding, rebound, rigid, pulsatile mass - Extremities Exam Extremities exam: Present: normal inspection, full ROM, other (2+ pulses noted in the bilateral upper and lower extremities. There is no palpable cord. negative Homans sign. Muscular compartments are soft. The pelvis is stable.). Absent: pedal edema, calf tenderness - Back Exam Back exam: Present: normal inspection, full ROM. Absent: tenderness, CVA tenderness (R), CVA tenderness (L), paraspinal tenderness, vertebral tenderness - Neurological Exam Neurological exam: Present: alert (Able to subtract 100-7.), oriented X3, normal gait, other (No facial droop. Tongue midline. Extraocular movements intact bilaterally. Facial sensation intact to light touch in V1, V2, V3 distribution bilaterally. 5 and a 5 strength in 4 extremities. Sensation intact to light touch in 4 extremities.). Absent: motor sensory deficit - Psychiatric Psychiatric exam: Present: anxious. Absent: homicidal ideation, suicidal ideation - Skin Skin exam: Present: warm, dry, intact, normal color. Absent: rash ED Course Vital Signs 06/22/20 06/22/20 16:04 16:07 Temperature 98.6 F Pulse Rate 87 Respiratory 18 18 Rate Blood Pressure 130/74 [Right] O2 Sat by Pulse 100 100 Oximetry - Reevaluation(s) Reevaluation #1: 06/22/20 16:36 Differential diagnosis, including but not limited to: Anxiety, general medical exam Assessment and plan: 44-year-old female, who was afebrile, with reassuring vital signs, who is clinically sober, and at this point in time, anxious, but cooperative, demonstrating a lucid thought process. She does not appear to be psychiatrically impaired to the point where she would require 1013 hold or involuntary confinement in my opinion. She is adamant that she is not suicidal at this time. She is amenable to laboratory testing to exclude emergent toxicologic ingestion. She does exhibit decision-making capacity in my opinion. She also gives consent for medical team to obtain collateral information and history from family members and fianc. Psychiatric consultation is requested. Patient requested medication for anxiety, she would best be given Vistaril. She states that she is not . We anticipate discharge with outpatient follow-up. At this point time, do not detect any emergent medical condition that would require inpatient hospitalization. Reevaluation #2: 06/22/20 18:17 As expected, the psychiatric team has recommended discharge with outpatient follow-up. Patient's alcohol level is elevated. While clinically sober, I have recommended discharge to this patient if a legally sober adult is able to come by and pick her up. Reevaluation #3: 06/22/20 19:42 Patient continues to remain alert, oriented, sober, walking with a steady gait and exhibits decision-making capacity. She appears to be able to care for herself independently. She will be discharged with instructions for outpatient follow-up ED Medical Decision Making - Lab Data Result diagrams: 06/22/20 16:52 Vital Signs 06/22/20 06/22/20 16:04 16:07 Temperature 98.6 F Pulse Rate 87 Respiratory 18 18 Rate Blood Pressure 130/74 [Right] O2 Sat by Pulse 100 100 Oximetry Critical care attestation.: If time is entered above; I have spent that time in minutes in the direct care of this critically ill patient, excluding procedure time. ED Disposition Clinical Impression: Anxiety, General medical exam Alcohol dependence Qualifiers: Substance use status: uncomplicated Qualified Code(s): F10.20 - Alcohol dependence, uncomplicated Disposition: DC-01 TO HOME OR SELFCARE Is pt being admited?: No Does the pt Need Aspirin: No Condition: Stable Additional Instructions: Recommend that patient avoid alcohol consumption. Recommend that patient take the multivitamin as directed. Recommend that patient follow-up with a primary care doctor within the next month. Recommend that patient follow-up with outpatient community behavioral health resources. Please return to the emergency room right away with new pain, worsened pain, migration of pain, projectile vomiting, change in mental status, confusion, inability to tolerate liquid feeds, new, worsened or different symptoms not present on the initial emergency room evaluation. Outpatient [facility] Resources: [facility]) [address] [place] [address] / Tuesday thru Tuesday - 8am - 5pm [facility] Address: [address] [place] [id number] Tuesday thru Tuesday- 7am-2pm [facility] Address: [address], [place] [address] Tuesday thru Tuesday: 8:30AM-5PM CRISIS RESOURCES [place] Crisis Line: Suicide Prevention Line: Crisis Text Line: Text START to [phone] Emergency: 911 Prescriptions: Multivitamin with Folic Acid [[facility] One Daily Essential Tablet] 400 mcg PO QDAY #30 tablet Referrals: SHERRI ROSS MD [Staff Physician] - 3-5 Days [facility] [Provider Group] - 3-5 Days [facility] - 3-5 Days
[2020-06-22 17:27] LABS: Blood Urea Nitrogen 12 mg/dL (7-17); Calcium 9.1 mg/dL (8.4-10.2); Hemolysis Index 6
[2020-06-22 17:28] LABS: BUN/Creatinine Ratio 17
== END 2020-06-22 20:05 | disposition home or self-care (01) ==
LOC: ED 15:21
DX: F41.9 Anxiety disorder, unspecified (principal); F10.10 Alcohol abuse, uncomplicated; Z00.00 Encounter for general adult medical examination without abnormal findings
CPT/HCPCS: 36415; 80048; 82550; 83735; 84702; 99284; Q0177; 80320; G0480